=== PATIENT | female | born 1975 ===

== ENCOUNTER 2020-08-12 09:04 | Inpatient (IN) | payer OTHER ==
[2020-08-12 12:06] LABS: Bacteria,Urine 2+ /HPF (Negative); Bilirubin,Urine NEG (Negative); Blood,Urine LG (Negative); Color,Urine Yellow (Yellow); Mucus,Urine 3+ /HPF; Urobilinogen,Urine < 2.0 mg/dL (<2.0)
--- NOTE | 2020-08-12 13:37 | Ultrasound Report ---
LIMITED OBSTETRIC ULTRASOUND WITH BIOPHYSICAL PROFILE HISTORY: well-being, Assess biophysical profile and amniotic fluid index. Estimated gestational age 36 weeks 1 day COMPARISON: None. TECHNIQUE: Obstetric sonogram performed for biophysical profile assessment. FINDINGS: Gestation: Single intrauterine Presentation: Currentlycephalic Amniotic Fluid Index: 18.0 cm ANATOMY: Detailed anatomic survey was not requested. heart rate is 131 beats per minute. BIOPHYSICAL PROFILE: Movement: 2 Tone: 2 Breathin Amniotic Fluid: 2 Total: 6 out of 8 Other findings: There is what appears to be prominent fluid-filled loops of bowel in the abdome n. This is incompletely assessed on this examination. IMPRESSION 1. Biophysical Profile 03/12, therefore close interval follow-up is recommended. 2. Amniotic fluid index 18.0 cm. 3. There is what appears to be prominent fluid-filled loops of bowel in the abdomen. This is in completely assessed on this examination, and could be further evaluated with targeted obstetric ultra sound as clinically warranted. Signer Name: Madyson Luciano MD Signed: 08/12/2020 1:32 PM Workstation Name: [id number]
[2020-08-12] MEDS ORDERED: LACTATED RINGERS 1,000 ML ONE (14:24)
[2020-08-12] MEDS ORDERED: LACTATED RINGERS 1,000 ML IV ONE (15:00)
[2020-08-12] MEDS ORDERED: TERBUTALINE 1 MG/1 ML INJ SUB-Q SCH (15:00)
[2020-08-12] MEDS ORDERED: AMPICILLIN/NS 2 GM/100 ML 2 GM/100 ML BAG IV ONE ×2 (16:23→20:30)
[2020-08-12] MEDS ORDERED: LIDOCAINE (2%) 20 MG/1 ML VIAL 20 ML MDV INFILTRATI ONE (16:23)
[2020-08-12] MEDS ORDERED: ePHEDrine SULFATE 50 MG/1 ML INJ IV PRN (16:23)
[2020-08-12] MEDS ORDERED: fentaNYL 100 MCG/2 ML INJ IV PRN (16:23)
[2020-08-12] MEDS ORDERED: TERBUTALINE 1 MG/1 ML INJ SUB-Q PRN (16:23)
[2020-08-12] MEDS ORDERED: MINERAL OIL 30 ML ORAL LIQD PO PRN (16:23)
--- NOTE | 2020-08-12 16:30 | History and Physical Report ---
History of Present Illness Date of examination: 08/12/20 Date of admission: Leaking of water from vagina. Chief complaint: Contractions and leaking of fluid. History of present illness: 44 year old presents with complaint of several gushes of fluid from vagina today. Also complains of contractions. Patient denies vaginal bleeding. Patient reports active movement. Patient states she received care at [facility]. records are not available. Patient reports her EDC is 09/08/2020. No labs are available. labs and US have been ordered upon admission. 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 Also complicated by MO and AMA. States she was seeing [facility]. Current medications: Folic acid, vitamins, and iron. NKDA. 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 denies: smoking, alcohol abuse, prescription drug abuse, IV drug use - Obstetrical History Expected Date of Delivery: 09/08/20 Actual Gestation: 36 Week(s) 1 Day(s) : 3 Para: 2 Hx # Term Pregnancies: 2 Number of Pregnancies: 0 Spontaneous Abortions: 0 Induced : 0 Number of Living Children: 2 Medications and Allergies Allergies Allergy/AdvReac Type Severity Reaction Status Date / Time No Known Allergies Allergy Verified 08/12/20 16:37 Active Meds: Active Medications Betamethasone Acet/Betameth SodPhos (Celestone Soluspan) 12 mg IM Q24HR DEVAUGHN Ephedrine Sulfate (Ephedrine Sulfate) 10 mg IV Q2M PRN PRN Reason: Hypotension Fentanyl (Sublimaze) 100 mcg IV Q2H PRN PRN Reason: Pain,Severe (7-10) LABOR PAIN Lactated Ringer's (Lactated Ringers) 1,000 mls @ 125 mls/hr IV DIRECT DEVAUGHN Ampicillin Sodium (Ampicillin/Ns 2 Gm/100 Ml) 2 gm in 100 mls @ 100 mls/hr IV ONCE ONE; Protocol Stop: 08/12/20 17:22 Ampicillin Sodium (Ampicillin/Ns 1 Gm/50 Ml) 1 gm in 50 mls @ 100 mls/hr IV Q4HR DEVAUGHN; Protocol Lidocaine (Xylocaine 2%) 20 ml INFILTRATI ONCE ONE Stop: 08/12/20 16:24 Mineral Oil (Mineral Oil) 30 ml PO QHS PRN PRN Reason: Constipation Terbutaline Sulfate (Brethine) 0.25 mg SUB-Q Q20MIN DEVAUGHN Stop: 08/14/20 15:01 Last Admin: 08/12/20 15:08 Dose: 0.25 mg Documented by: Terbutaline Sulfate (Brethine) 0.25 mg SUB-Q ONCE PRN PRN Reason: Hyperstimulation/Hypertonicity Review of Systems All systems: negative (leaking of fluid and contractions) - Vital Signs Vital signs: Vital Signs Pulse Pulse Ox 101 H 97 08/12/20 09:34 08/12/20 09:34 Temp Pulse Resp BP Pulse Ox 97.7 F 120 H 16 134/75 96 08/12/20 14:00 08/12/20 16:26 08/12/20 14:00 08/12/20 15:47 08/12/20 16:26 EFW 8 lb. 4 oz. EGA 40 weeks by US today. BPP 6/8. - Physical Exam Abdomen: Positive: normal appearance, soft. Negative: distention, tenderness, guarding, rigidity Genitourinary (Female): Positive: normal external genitalia, normal perenium. Negative: perineal/vulvar lesions (no lesions seen on careful exam upon admission) Vagina: Positive: other (+ pooling, + fern test) Uterus: Positive: enlarged. Negative: tender Anus/Rectum: Positive: normal perianal skin Extremities: Positive: normal, edema (mild bilateral pedal edema). Negative: tenderness - Obstetrical FHR: category 1 Cervical Dilatation: 2 Cervical Effacement Percentage: 30 station: -3 Uterine Contraction Pattern: Irregular Uterine Contraction Intensity: Mild Results Result Diagrams: 08/12/20 17:08 Abnormal lab results 08/12/20 Range/Units Unknown Urine WBC (Auto) 31.0 H (0.0-6.0) /HPF U Epithel Cells (Auto) 92.0 H (0-13.0) /HPF All other labs normal. Assessment and Plan A: at 36 1/7 weeks gestation. SROM. Early labor. GBS unknown. No records available. Dilated bowel, microcolon, and jejunal atresia; dilated lateral ventricles. P: Request records. Admit. Continuous EFM. NICU notified of dilated bowel, microcolon, and jejunal atresia and dilated lateral ventricles. Celestone. Draw labs. Will augment labor with Pitocin if no or slow cervical change. GBS prophylaxis. Discussed POC with pt. and S.O. who state they are in agreement with POC.
[2020-08-12] MEDS ORDERED: BETAMET ACET/BETAMET NA PH 6 MG/ML INJ 5 ML MDV IM SCH (17:00)
[2020-08-12] MEDS ORDERED: ONDANSETRON 4 MG/2 ML INJ IV PRN (18:01)
[2020-08-12 18:07] LABS: Hemoglobin 12.1 gm/dl (10.1-14.3); Mean Corpuscular HGB Conc 34 % (30-34); Mean Corpuscular Volume 90 fl (79-97); Platelet Count 175 K/mm3 (140-440); Red Blood Count 4.02 M/mm3 (3.65-5.03); Red Cell Distribution Width 14.1 % (13.2-15.2)
--- NOTE | 2020-08-12 19:02 | Ultrasound Report ---
ULTRASOUND OBSTETRIC INDICATION / CLINICAL INFORMATION: EGA, EDC, location of placenta. Clinical Gestational Age (GA): 36.1 weeks.days TECHNIQUE: Transabdominal. COMPARISON: Limited ultrasound performed earlier today FINDINGS: There is a single intrauterine . Biparietal Diameter = 9.8 cm = 40.0 weeks.days Head Circumference = 34.9 cm = 40.4 weeks.days Abdominal Circumference = 36.6 cm = 40.4 weeks.days Femur Length = 7.6 cm = 39.0 weeks.days Average Ultrasound Age (AUA) = 40.0 weeks.days Heart Rate: 140 beats per minute. Estimated Weight in grams (if calculated): 4011 bowel loops appear dilated as was noted on limited SOUND performed earlier today. Position: cephalic. Placenta: anterior and free of the os. Amniotic Fluid Volume: normal Amniotic Fluid Index (ZENIA) in cm (if calculated): 18.8. Maternal Adnexa: No significant abnormality. IMPRESSION: 1. Single, living intrauterine with estimated sonographic age of 40.0 weeks.days 2. bowel loops appear dilated. Signer Name: Lee Vargas MD Signed: 08/12/2020 6:58 PM Workstation Name: [id number]
[2020-08-12] MEDS ORDERED: OXYTOCIN DRIP 30 UNITS/500 ML BAG IV SCH (20:00)
[2020-08-12] MEDS ORDERED: AMPICILLIN/NS 1 GM/50 ML 1 GM/50 ML BAG IV SCH (20:26)
[2020-08-12] MEDS: LACTATED RINGERS 1,000 ML IV SCH (20:51)
[2020-08-12 21:15] LABS: Hepatitis C Virus Antibody Non-Reactive (NonReactive)
[2020-08-13] MEDS: LACTATED RINGERS 1,000 ML IV SCH (04:32)
[2020-08-13] MEDS: AMPICILLIN/NS 1 GM/50 ML 1 GM/50 ML BAG IV SCH ×5 (04:32→23:30)
--- NOTE | 2020-08-13 05:02 | Event Note ---
Date: 08/13/20 SVE .
--- NOTE | 2020-08-13 10:10 | Progress Note ---
Assessment and Plan A: IUP@ 36 wks with SROM cl fluid AMA, bowel dilation, dilated lateral ventricles GBS unknown P: Continue monitoring with Pitocin Pain med/Epidural prn GBS prophylaxis obtain MR Alert NICU Anticipate Subjective - Subjective Date of service: 08/13/20 Principal diagnosis: iup@ 36 wks Patient reports: movement normal Objective - Vital Signs Vital Signs: Vital Signs - 12hr 08/12/20 08/12/20 08/12/20 22:01 22:06 22:11 Temperature Pulse Rate 92 H 90 96 H Respiratory Rate Blood Pressure O2 Sat by Pulse 96 97 97 Oximetry 08/12/20 08/12/20 08/12/20 22:16 22:21 22:26 Temperature Pulse Rate 90 93 H 102 H Respiratory Rate Blood Pressure O2 Sat by Pulse 97 97 97 Oximetry 08/12/20 08/12/20 08/12/20 22:31 22:36 22:41 Temperature Pulse Rate 99 H 94 H 93 H Respiratory Rate Blood Pressure O2 Sat by Pulse 95 95 96 Oximetry 08/12/20 08/12/20 08/12/20 22:45 22:46 22:51 Temperature 98.2 F Pulse Rate 96 H 96 H Respiratory Rate Blood Pressure O2 Sat by Pulse 97 96 Oximetry 08/12/20 08/12/20 08/12/20 22:56 23:01 23:06 Temperature Pulse Rate 100 H 88 92 H Respiratory Rate Blood Pressure O2 Sat by Pulse 95 96 97 Oximetry 08/12/20 08/12/20 08/12/20 23:11 23:16 23:21 Temperature Pulse Rate 91 H 81 88 Respiratory Rate Blood Pressure O2 Sat by Pulse 96 95 97 Oximetry 08/12/20 08/12/20 08/12/20 23:26 23:31 23:36 Temperature Pulse Rate 98 H 85 84 Respiratory Rate Blood Pressure O2 Sat by Pulse 97 96 94 Oximetry 08/12/20 08/12/20 08/12/20 23:37 23:41 23:44 Temperature Pulse Rate 85 82 97 H Respiratory Rate Blood Pressure O2 Sat by Pulse 94 95 94 Oximetry 08/12/20 08/12/20 08/12/20 23:46 23:51 23:52 Temperature Pulse Rate 82 84 87 Respiratory Rate Blood Pressure O2 Sat by Pulse 95 96 94 Oximetry 08/12/20 08/12/20 08/13/20 23:56 23:59 00:01 Temperature Pulse Rate 82 89 95 H Respiratory Rate Blood Pressure O2 Sat by Pulse 95 94 96 Oximetry 08/13/20 08/13/20 08/13/20 00:06 00:15 00:17 Temperature 98.5 F Pulse Rate 93 H 80 Respiratory Rate Blood Pressure 136/84 O2 Sat by Pulse 97 98 Oximetry 08/13/20 08/13/20 08/13/20 00:22 00:27 00:32 Temperature Pulse Rate 85 83 87 Respiratory Rate Blood Pressure O2 Sat by Pulse 95 95 96 Oximetry 08/13/20 08/13/20 08/13/20 00:37 00:42 00:47 Temperature Pulse Rate 84 95 H 94 H Respiratory Rate Blood Pressure O2 Sat by Pulse 95 96 97 Oximetry 08/13/20 08/13/20 08/13/20 00:52 00:57 01:02 Temperature Pulse Rate 84 93 H 96 H Respiratory Rate Blood Pressure O2 Sat by Pulse 96 97 95 Oximetry 08/13/20 08/13/20 08/13/20 01:07 01:12 01:18 Temperature Pulse Rate 97 H 94 H 94 H Respiratory Rate Blood Pressure O2 Sat by Pulse 95 96 96 Oximetry 08/13/20 08/13/20 08/13/20 01:22 01:27 01:32 Temperature Pulse Rate 89 94 H 96 H Respiratory Rate Blood Pressure O2 Sat by Pulse 97 96 96 Oximetry 08/13/20 08/13/20 08/13/20 01:35 01:38 01:42 Temperature Pulse Rate 90 104 H 87 Respiratory Rate Blood Pressure O2 Sat by Pulse 94 96 95 Oximetry 08/13/20 08/13/20 08/13/20 01:47 01:52 01:57 Temperature Pulse Rate 90 94 H 83 Respiratory Rate Blood Pressure O2 Sat by Pulse 96 97 95 Oximetry 08/13/20 08/13/20 08/13/20 02:00 02:02 02:07 Temperature Pulse Rate 80 90 89 Respiratory Rate Blood Pressure O2 Sat by Pulse 94 95 96 Oximetry 08/13/20 08/13/20 08/13/20 02:13 02:17 02:18 Temperature Pulse Rate 92 H 78 94 H Respiratory Rate Blood Pressure O2 Sat by Pulse 94 95 94 Oximetry 08/13/20 08/13/20 08/13/20 02:22 02:27 02:28 Temperature Pulse Rate 76 87 88 Respiratory Rate Blood Pressure O2 Sat by Pulse 96 93 96 Oximetry 08/13/20 08/13/20 08/13/20 02:32 02:33 02:38 Temperature Pulse Rate 96 H 101 H 99 H Respiratory Rate Blood Pressure O2 Sat by Pulse 92 93 96 Oximetry 08/13/20 08/13/20 08/13/20 02:43 02:45 02:55 Temperature 97.8 F Pulse Rate 92 H 90 Respiratory Rate Blood Pressure O2 Sat by Pulse 96 96 Oximetry 08/13/20 08/13/20 08/13/20 03:00 03:04 03:10 Temperature Pulse Rate 88 93 H 85 Respiratory Rate Blood Pressure O2 Sat by Pulse 96 96 96 Oximetry 08/13/20 08/13/20 08/13/20 03:14 03:19 03:25 Temperature Pulse Rate 90 94 H 87 Respiratory Rate Blood Pressure O2 Sat by Pulse 96 95 96 Oximetry 08/13/20 08/13/20 08/13/20 03:29 03:34 03:40 Temperature Pulse Rate 89 90 85 Respiratory Rate Blood Pressure O2 Sat by Pulse 96 96 96 Oximetry 08/13/20 08/13/20 08/13/20 03:45 03:49 03:55 Temperature Pulse Rate 88 115 H 94 H Respiratory Rate Blood Pressure O2 Sat by Pulse 96 98 96 Oximetry 08/13/20 08/13/20 08/13/20 03:59 04:03 04:05 Temperature Pulse Rate 103 H 93 H 96 H Respiratory Rate Blood Pressure O2 Sat by Pulse 96 94 96 Oximetry 08/13/20 08/13/20 08/13/20 04:09 04:10 04:15 Temperature Pulse Rate 92 H 87 87 Respiratory Rate Blood Pressure O2 Sat by Pulse 94 96 95 Oximetry 08/13/20 08/13/20 08/13/20 04:20 04:25 04:26 Temperature Pulse Rate 86 86 86 Respiratory Rate Blood Pressure O2 Sat by Pulse 94 94 93 Oximetry 08/13/20 08/13/20 08/13/20 04:30 04:35 04:40 Temperature Pulse Rate 91 H 101 H 91 H Respiratory Rate Blood Pressure O2 Sat by Pulse 96 96 96 Oximetry 08/13/20 08/13/20 08/13/20 04:44 04:45 04:50 Temperature 98.0 F Pulse Rate 88 90 Respiratory Rate Blood Pressure O2 Sat by Pulse 96 96 Oximetry 08/13/20 08/13/20 08/13/20 04:54 05:00 05:05 Temperature Pulse Rate 87 86 90 Respiratory Rate Blood Pressure O2 Sat by Pulse 96 97 96 Oximetry 08/13/20 08/13/20 08/13/20 05:09 05:14 05:20 Temperature Pulse Rate 102 H 100 H 88 Respiratory Rate Blood Pressure O2 Sat by Pulse 96 95 96 Oximetry 08/13/20 08/13/20 08/13/20 05:25 05:30 05:35 Temperature Pulse Rate 87 95 H 89 Respiratory Rate Blood Pressure O2 Sat by Pulse 97 95 97 Oximetry 08/13/20 08/13/20 08/13/20 05:40 05:45 05:50 Temperature Pulse Rate 82 94 H 94 H Respiratory Rate Blood Pressure O2 Sat by Pulse 97 96 97 Oximetry 08/13/20 08/13/20 08/13/20 05:55 06:07 06:12 Temperature Pulse Rate 94 H 97 H 86 Respiratory Rate Blood Pressure O2 Sat by Pulse 97 98 96 Oximetry 08/13/20 08/13/20 08/13/20 06:17 06:22 06:27 Temperature Pulse Rate 95 H 86 96 H Respiratory Rate Blood Pressure O2 Sat by Pulse 97 96 97 Oximetry 08/13/20 08/13/20 08/13/20 06:32 06:37 06:42 Temperature Pulse Rate 89 88 90 Respiratory Rate Blood Pressure O2 Sat by Pulse 97 97 96 Oximetry 08/13/20 08/13/20 08/13/20 06:47 06:52 06:57 Temperature Pulse Rate 103 H 91 H 100 H Respiratory Rate Blood Pressure O2 Sat by Pulse 96 96 98 Oximetry 08/13/20 08/13/20 08/13/20 07:02 07:07 07:12 Temperature Pulse Rate 95 H 99 H 97 H Respiratory Rate Blood Pressure O2 Sat by Pulse 96 96 97 Oximetry 08/13/20 08/13/20 08/13/20 07:17 07:22 07:27 Temperature 98.1 F Pulse Rate 99 H 88 94 H Respiratory 18 Rate Blood Pressure 126/72 O2 Sat by Pulse 96 97 98 Oximetry 08/13/20 08/13/20 08/13/20 07:32 07:40 07:45 Temperature Pulse Rate 85 94 H 85 Respiratory Rate Blood Pressure O2 Sat by Pulse 97 97 97 Oximetry 08/13/20 08/13/20 08/13/20 07:50 07:55 08:00 Temperature Pulse Rate 91 H 88 88 Respiratory Rate Blood Pressure 125/66 O2 Sat by Pulse 96 96 97 Oximetry 08/13/20 08/13/20 08/13/20 08:05 08:10 08:15 Temperature Pulse Rate 92 H 92 H 90 Respiratory Rate Blood Pressure O2 Sat by Pulse 97 97 97 Oximetry 08/13/20 08/13/20 08/13/20 08:20 08:24 08:25 Temperature Pulse Rate 90 92 H 90 Respiratory Rate Blood Pressure 126/64 O2 Sat by Pulse 97 99 Oximetry 08/13/20 08/13/20 08/13/20 08:30 08:43 08:48 Temperature Pulse Rate 87 93 H 89 Respiratory Rate Blood Pressure O2 Sat by Pulse 97 94 98 Oximetry 08/13/20 08/13/20 08/13/20 08:53 08:55 08:58 Temperature Pulse Rate 86 85 84 Respiratory Rate Blood Pressure 116/55 O2 Sat by Pulse 97 97 Oximetry 08/13/20 08/13/20 08/13/20 09:03 09:08 09:13 Temperature Pulse Rate 93 H 93 H 96 H Respiratory Rate Blood Pressure O2 Sat by Pulse 98 99 98 Oximetry 08/13/20 08/13/20 08/13/20 09:18 09:23 09:25 Temperature Pulse Rate 109 H 92 H 96 H Respiratory Rate Blood Pressure 111/56 O2 Sat by Pulse 98 97 Oximetry 08/13/20 08/13/20 08/13/20 09:28 09:33 09:38 Temperature Pulse Rate 92 H 97 H 87 Respiratory Rate Blood Pressure O2 Sat by Pulse 98 98 97 Oximetry 08/13/20 08/13/20 08/13/20 09:43 09:48 09:53 Temperature Pulse Rate 89 89 94 H Respiratory Rate Blood Pressure O2 Sat by Pulse 98 99 99 Oximetry 08/13/20 08/13/20 09:54 09:58 Temperature Pulse Rate 90 97 H Respiratory Rate Blood Pressure 118/59 O2 Sat by Pulse 99 Oximetry - Exam Breasts: normal Abdomen: Present: normal appearance, soft, other (gravid) Vulva: both: normal Uterus: Present: normal, other (gravid) FHR: auscultation normal, category 1 Uterine Contraction Monitor Mode: External Uterine Contraction Pattern: Irregular Uterine Tone Measurement Phase: Resting Uterine Contraction Intensity: Mild Extremities: normal - Labs Labs: Abnormal Labs 08/12/20 Unknown Urine WBC (Auto) 31.0 H U Epithel Cells (Auto) 92.0 H Laboratory Results - last 24 hr 08/12/20 08/12/20 08/12/20 17:08 17:08 20:10 WBC 9.3 RBC 4.02 Hgb 12.1 Hct 36.0 MCV 90 MCH 30 MCHC 34 RDW 14.1 Plt Count 175 Hemoglobin A1c Urine Color Urine Turbidity Urine pH Ur Specific [place] Urine Protein Urine Glucose (UA) Urine Ketones Urine Blood Urine Nitrite Urine Bilirubin Urine Urobilinogen Ur Leukocyte Esterase Urine WBC (Auto) Urine RBC (Auto) U Epithel Cells (Auto) Urine Bacteria (Auto) Urine Mucus Syphilis IgG Antibody Nonreactive Hep Bs Antigen Hepatitis C Antibody Non-reactive HIV 1&2 Antibody Rapid HIV P24 Antigen Rubella IgG Antibody Immune Blood Type B POSITIVE Antibody Screen Negative 08/12/20 08/12/20 08/12/20 20:10 20:10 Unknown WBC RBC Hgb Hct MCV MCH MCHC RDW Plt Count Hemoglobin A1c Urine Color Yellow Urine Turbidity Cloudy Urine pH 5.0 Ur Specific [place] 1.023 Urine Protein 100 mg/dl Urine Glucose (UA) Neg Urine Ketones Neg Urine Blood Lg Urine Nitrite Neg Urine Bilirubin Neg Urine Urobilinogen < 2.0 Ur Leukocyte Esterase Mod Urine WBC (Auto) 31.0 H Urine RBC (Auto) 170.0 U Epithel Cells (Auto) 92.0 H Urine Bacteria (Auto) 2+ Urine Mucus 3+ Syphilis IgG Antibody Hep Bs Antigen Non-reactive Hepatitis C Antibody HIV 1&2 Antibody Rapid Non react HIV P24 Antigen Non react Rubella IgG Antibody Blood Type Antibody Screen 08/12/20 Unknown WBC RBC Hgb Hct MCV MCH MCHC RDW Plt Count Hemoglobin A1c 5.8 Urine Color Urine Turbidity Urine pH Ur Specific [place] Urine Protein Urine Glucose (UA) Urine Ketones Urine Blood Urine Nitrite Urine Bilirubin Urine Urobilinogen Ur Leukocyte Esterase Urine WBC (Auto) Urine RBC (Auto) U Epithel Cells (Auto) Urine Bacteria (Auto) Urine Mucus Syphilis IgG Antibody Hep Bs Antigen Hepatitis C Antibody HIV 1&2 Antibody Rapid HIV P24 Antigen Rubella IgG Antibody Blood Type Antibody Screen
--- NOTE | 2020-08-13 15:28 | Progress Note ---
Assessment and Plan A: IUP@ 36.2 wks p: AROM light mec Continue monitoring Pain med/Epidural prn Anticipate Subjective - Subjective Date of service: 08/13/20 Principal diagnosis: iup@ 36 wks Patient reports: movement normal Objective - Vital Signs Vital Signs: Vital Signs - 12hr 08/13/20 08/13/20 08/13/20 03:25 03:29 03:34 Temperature Pulse Rate 87 89 90 Respiratory Rate Blood Pressure O2 Sat by Pulse 96 96 96 Oximetry 08/13/20 08/13/20 08/13/20 03:40 03:45 03:49 Temperature Pulse Rate 85 88 115 H Respiratory Rate Blood Pressure O2 Sat by Pulse 96 96 98 Oximetry 08/13/20 08/13/20 08/13/20 03:55 03:59 04:03 Temperature Pulse Rate 94 H 103 H 93 H Respiratory Rate Blood Pressure O2 Sat by Pulse 96 96 94 Oximetry 08/13/20 08/13/20 08/13/20 04:05 04:09 04:10 Temperature Pulse Rate 96 H 92 H 87 Respiratory Rate Blood Pressure O2 Sat by Pulse 96 94 96 Oximetry 08/13/20 08/13/20 08/13/20 04:15 04:20 04:25 Temperature Pulse Rate 87 86 86 Respiratory Rate Blood Pressure O2 Sat by Pulse 95 94 94 Oximetry 08/13/20 08/13/20 08/13/20 04:26 04:30 04:35 Temperature Pulse Rate 86 91 H 101 H Respiratory Rate Blood Pressure O2 Sat by Pulse 93 96 96 Oximetry 08/13/20 08/13/20 08/13/20 04:40 04:44 04:45 Temperature 98.0 F Pulse Rate 91 H 88 Respiratory Rate Blood Pressure O2 Sat by Pulse 96 96 Oximetry 08/13/20 08/13/20 08/13/20 04:50 04:54 05:00 Temperature Pulse Rate 90 87 86 Respiratory Rate Blood Pressure O2 Sat by Pulse 96 96 97 Oximetry 08/13/20 08/13/20 08/13/20 05:05 05:09 05:14 Temperature Pulse Rate 90 102 H 100 H Respiratory Rate Blood Pressure O2 Sat by Pulse 96 96 95 Oximetry 08/13/20 08/13/20 08/13/20 05:20 05:25 05:30 Temperature Pulse Rate 88 87 95 H Respiratory Rate Blood Pressure O2 Sat by Pulse 96 97 95 Oximetry 08/13/20 08/13/20 08/13/20 05:35 05:40 05:45 Temperature Pulse Rate 89 82 94 H Respiratory Rate Blood Pressure O2 Sat by Pulse 97 97 96 Oximetry 08/13/20 08/13/20 08/13/20 05:50 05:55 06:07 Temperature Pulse Rate 94 H 94 H 97 H Respiratory Rate Blood Pressure O2 Sat by Pulse 97 97 98 Oximetry 08/13/20 08/13/20 08/13/20 06:12 06:17 06:22 Temperature Pulse Rate 86 95 H 86 Respiratory Rate Blood Pressure O2 Sat by Pulse 96 97 96 Oximetry 08/13/20 08/13/20 08/13/20 06:27 06:32 06:37 Temperature Pulse Rate 96 H 89 88 Respiratory Rate Blood Pressure O2 Sat by Pulse 97 97 97 Oximetry 08/13/20 08/13/20 08/13/20 06:42 06:47 06:52 Temperature Pulse Rate 90 103 H 91 H Respiratory Rate Blood Pressure O2 Sat by Pulse 96 96 96 Oximetry 08/13/20 08/13/20 08/13/20 06:57 07:02 07:07 Temperature Pulse Rate 100 H 95 H 99 H Respiratory Rate Blood Pressure O2 Sat by Pulse 98 96 96 Oximetry 08/13/20 08/13/20 08/13/20 07:12 07:17 07:22 Temperature 98.1 F Pulse Rate 97 H 99 H 88 Respiratory 18 Rate Blood Pressure O2 Sat by Pulse 97 96 97 Oximetry 08/13/20 08/13/20 08/13/20 07:27 07:32 07:40 Temperature Pulse Rate 94 H 85 94 H Respiratory Rate Blood Pressure 126/72 O2 Sat by Pulse 98 97 97 Oximetry 08/13/20 08/13/20 08/13/20 07:45 07:50 07:55 Temperature Pulse Rate 85 91 H 88 Respiratory Rate Blood Pressure 125/66 O2 Sat by Pulse 97 96 96 Oximetry 08/13/20 08/13/20 08/13/20 08:00 08:05 08:10 Temperature Pulse Rate 88 92 H 92 H Respiratory Rate Blood Pressure O2 Sat by Pulse 97 97 97 Oximetry 08/13/20 08/13/20 08/13/20 08:15 08:20 08:24 Temperature Pulse Rate 90 90 92 H Respiratory Rate Blood Pressure 126/64 O2 Sat by Pulse 97 97 Oximetry 08/13/20 08/13/20 08/13/20 08:25 08:30 08:43 Temperature Pulse Rate 90 87 93 H Respiratory Rate Blood Pressure O2 Sat by Pulse 99 97 94 Oximetry 08/13/20 08/13/20 08/13/20 08:48 08:53 08:55 Temperature Pulse Rate 89 86 85 Respiratory Rate Blood Pressure 116/55 O2 Sat by Pulse 98 97 Oximetry 08/13/20 08/13/20 08/13/20 08:58 09:03 09:08 Temperature Pulse Rate 84 93 H 93 H Respiratory Rate Blood Pressure O2 Sat by Pulse 97 98 99 Oximetry 08/13/20 08/13/20 08/13/20 09:13 09:18 09:23 Temperature Pulse Rate 96 H 109 H 92 H Respiratory Rate Blood Pressure O2 Sat by Pulse 98 98 97 Oximetry 08/13/20 08/13/20 08/13/20 09:25 09:28 09:33 Temperature Pulse Rate 96 H 92 H 97 H Respiratory Rate Blood Pressure 111/56 O2 Sat by Pulse 98 98 Oximetry 08/13/20 08/13/20 08/13/20 09:38 09:43 09:48 Temperature Pulse Rate 87 89 89 Respiratory Rate Blood Pressure O2 Sat by Pulse 97 98 99 Oximetry 08/13/20 08/13/20 08/13/20 09:53 09:54 09:58 Temperature Pulse Rate 94 H 90 97 H Respiratory Rate Blood Pressure 118/59 O2 Sat by Pulse 99 99 Oximetry 08/13/20 08/13/20 08/13/20 10:03 10:08 10:13 Temperature Pulse Rate 92 H 101 H 96 H Respiratory Rate Blood Pressure O2 Sat by Pulse 98 98 97 Oximetry 08/13/20 08/13/20 08/13/20 10:18 10:23 10:25 Temperature Pulse Rate 97 H 90 96 H Respiratory Rate Blood Pressure 121/58 O2 Sat by Pulse 98 98 Oximetry 08/13/20 08/13/20 08/13/20 10:28 10:33 10:38 Temperature Pulse Rate 94 H 88 90 Respiratory Rate Blood Pressure O2 Sat by Pulse 97 98 97 Oximetry 08/13/20 08/13/20 08/13/20 10:41 10:43 10:48 Temperature 97.9 F Pulse Rate 89 99 H Respiratory Rate Blood Pressure O2 Sat by Pulse 97 98 Oximetry 08/13/20 08/13/20 08/13/20 10:53 10:54 10:58 Temperature Pulse Rate 88 89 89 Respiratory Rate Blood Pressure 118/59 O2 Sat by Pulse 98 98 Oximetry 08/13/20 08/13/20 08/13/20 11:03 11:08 11:13 Temperature Pulse Rate 89 94 H 96 H Respiratory Rate Blood Pressure O2 Sat by Pulse 97 97 97 Oximetry 08/13/20 08/13/20 08/13/20 11:18 11:23 11:24 Temperature Pulse Rate 91 H 93 H 108 H Respiratory Rate Blood Pressure 110/59 O2 Sat by Pulse 97 96 Oximetry 08/13/20 08/13/20 08/13/20 11:28 11:33 11:38 Temperature Pulse Rate 101 H 92 H 94 H Respiratory Rate Blood Pressure O2 Sat by Pulse 98 97 99 Oximetry 08/13/20 08/13/20 08/13/20 11:43 11:48 11:50 Temperature Pulse Rate 100 H 100 H 98 H Respiratory Rate Blood Pressure O2 Sat by Pulse 97 98 99 Oximetry 08/13/20 08/13/20 08/13/20 11:55 11:59 12:00 Temperature Pulse Rate 99 H 96 H 100 H Respiratory Rate Blood Pressure 109/57 O2 Sat by Pulse 99 99 Oximetry 08/13/20 08/13/20 08/13/20 12:05 12:07 12:10 Temperature 98.4 F Pulse Rate 94 H 97 H Respiratory 20 Rate Blood Pressure O2 Sat by Pulse 98 97 Oximetry 08/13/20 08/13/20 08/13/20 12:15 12:20 12:25 Temperature Pulse Rate 94 H 107 H 103 H Respiratory Rate Blood Pressure O2 Sat by Pulse 96 97 97 Oximetry 08/13/20 08/13/20 08/13/20 12:30 12:31 12:35 Temperature Pulse Rate 104 H 103 H 106 H Respiratory Rate Blood Pressure 110/55 O2 Sat by Pulse 97 98 Oximetry 08/13/20 08/13/20 08/13/20 12:40 12:45 12:50 Temperature Pulse Rate 100 H 100 H 105 H Respiratory Rate Blood Pressure O2 Sat by Pulse 98 97 97 Oximetry 08/13/20 08/13/20 08/13/20 12:55 12:59 13:00 Temperature Pulse Rate 103 H 98 H 103 H Respiratory Rate Blood Pressure 106/55 O2 Sat by Pulse 98 98 Oximetry 08/13/20 08/13/20 08/13/20 13:05 13:10 13:15 Temperature Pulse Rate 102 H 104 H 105 H Respiratory Rate Blood Pressure O2 Sat by Pulse 98 97 97 Oximetry 08/13/20 08/13/20 08/13/20 13:20 13:25 13:30 Temperature Pulse Rate 102 H 103 H 102 H Respiratory Rate Blood Pressure 102/50 O2 Sat by Pulse 97 96 98 Oximetry 08/13/20 08/13/20 08/13/20 13:35 13:40 13:45 Temperature Pulse Rate 114 H 112 H 127 H Respiratory Rate Blood Pressure O2 Sat by Pulse 97 96 96 Oximetry 08/13/20 08/13/20 08/13/20 13:49 13:50 13:55 Temperature Pulse Rate 115 H 111 H 105 H Respiratory Rate Blood Pressure O2 Sat by Pulse 94 95 96 Oximetry 08/13/20 08/13/20 08/13/20 14:00 14:05 14:10 Temperature Pulse Rate 104 H 105 H 111 H Respiratory Rate Blood Pressure 106/54 O2 Sat by Pulse 98 98 96 Oximetry 08/13/20 08/13/20 08/13/20 14:15 14:20 14:25 Temperature Pulse Rate 101 H 105 H 102 H Respiratory Rate Blood Pressure O2 Sat by Pulse 96 98 97 Oximetry 08/13/20 08/13/20 08/13/20 14:28 14:29 14:30 Temperature 98.1 F Pulse Rate 103 H 106 H Respiratory 18 Rate Blood Pressure 111/55 O2 Sat by Pulse 98 Oximetry 08/13/20 08/13/20 08/13/20 14:35 14:40 14:45 Temperature Pulse Rate 103 H 101 H 102 H Respiratory Rate Blood Pressure O2 Sat by Pulse 98 98 98 Oximetry 08/13/20 08/13/20 08/13/20 14:50 14:55 15:00 Temperature Pulse Rate 103 H 93 H 99 H Respiratory Rate Blood Pressure O2 Sat by Pulse 97 99 100 Oximetry 08/13/20 08/13/20 08/13/20 15:01 15:05 15:10 Temperature Pulse Rate 100 H 98 H 105 H Respiratory Rate Blood Pressure 109/57 O2 Sat by Pulse 99 98 Oximetry 08/13/20 08/13/20 08/13/20 15:15 15:17 15:20 Temperature Pulse Rate 103 H 50 L 75 Respiratory Rate Blood Pressure O2 Sat by Pulse 99 0 L 94 Oximetry - Exam Breasts: deferred Abdomen: Present: normal appearance, soft Vulva: both: normal Uterus: Present: normal FHR: category 1 Uterine Contraction Monitor Mode: External Cervical Dilatation: 4 Cervical Effacement Percentage: 70 station: -2 Uterine Contraction Frequency (min): q2-3 Uterine Contraction Pattern: Regular Uterine Tone Measurement Phase: Resting Uterine Contraction Intensity: Moderate Extremities: normal - Labs Labs: Abnormal Labs 08/12/20 Unknown Urine WBC (Auto) 31.0 H U Epithel Cells (Auto) 92.0 H Laboratory Results - last 24 hr 08/12/20 08/12/20 08/12/20 17:08 17:08 20:10 WBC 9.3 RBC 4.02 Hgb 12.1 Hct 36.0 MCV 90 MCH 30 MCHC 34 RDW 14.1 Plt Count 175 Hemoglobin A1c Syphilis IgG Antibody Nonreactive Hep Bs Antigen Hepatitis C Antibody Non-reactive HIV 1&2 Antibody Rapid HIV P24 Antigen Rubella IgG Antibody Immune Blood Type B POSITIVE Antibody Screen Negative 08/12/20 08/12/20 08/12/20 20:10 20:10 Unknown WBC RBC Hgb Hct MCV MCH MCHC RDW Plt Count Hemoglobin A1c 5.8 Syphilis IgG Antibody Hep Bs Antigen Non-reactive Hepatitis C Antibody HIV 1&2 Antibody Rapid Non react HIV P24 Antigen Non react Rubella IgG Antibody Blood Type Antibody Screen
--- NOTE | 2020-08-13 17:22 | Consultation ---
Consult Note - Parent Education Parent(s) demonstrated understanding of all the information:: Yes Additional Comment: I met with both parents and discussed the plan of care for baby following delivery using bottle filler line with Skid Wrapper ID# [id number]. Both parents are aware of suspected ventricular dilation and intestinal dilation concerning for bowel obstruction in-utero. 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 I discussed the need for NICU admission to confirm the diagnosis. I explained that baby will not be allowed to feed after delivery and will have a PIV and NG tube after which an abdominal XRay will be obtained. If concerns are noted on Xray/exam, baby will be transferred to a [facility] for further evaluation and management. The dilated ventricles appear to be mild per the MRI and will be investigated initially with cranial US followed by advanced imaging if indicated. Both parents verbalized understanding of the plan of care and asked appropriate questions. Assessment and Plan - Assessment Gestation:: 36 (weeks) Baby's gender: Female - Plan Plan: Will attend delivery Admit baby to NICU for investigation and management of suspected bowel atresia
[2020-08-13] MEDS ORDERED: NALOXONE 2 MG/2 ML INJ IV PRN (18:21)
[2020-08-13] MEDS ORDERED: ePHEDrine SULFATE 50 MG/1 ML INJ IV PRN (18:21)
--- NOTE | 2020-08-13 18:21 | Anesthesia Consultation ---
Anesthesia Consult and Med Hx Date of service: 08/13/20 - Airway Anesthetic Teeth Evaluation: Good ROM Head & Neck: Adequate Mental/Hyoid Distance: Adequate Mallampati Class: Class II Intubation Access Assessment: Probably Good - Pulmonary Exam CTA: Yes - Cardiac Exam Cardiac Exam: RRR - Pre-Operative Health Status ASA Pre-Surgery Classification: ASA3 Proposed Anesthetic Plan: Epidural - Pulmonary Hx Asthma: Yes (08/11/2020) - Cardiovascular System Hx Hypertension: No - Central Nervous System Hx Seizures: No Hx Psychiatric Problems: No - Endocrine Hx Renal Disease: No Hx Hypothyroidism: No Hx Hyperthyroidism: No - Hematic Hx Anemia: No Hx Sickle Cell Disease: No - Other Systems Hx Alcohol Use: No Hx Obesity: Yes
--- NOTE | 2020-08-13 18:53 | Progress Note ---
Labor Epidural - Labor Epidural Start Time: 18:33 Stop Time: 18:52 Performed by:: CLEMENTE RIZVI Procedure: Patient is requesting epidural for labor pain. H&P, and labs reviewed. Procedure explained, questions answered, consent obtained. Patient in sitting position with blood pressure cuff and pulse ox on and working. Timeout performed immediately before start of procedure. Sterile betadine prep/drape. 3 mL 1% lidocaine skin wheal at L[3]-L[4]. 18-gauge UnFlete.comtead epidural needle advanced to [id number] with saline at 9 cm. Epidural dexmedetomidine [30] mcg administered. Epidural catheter advanced to 14 cm, negative aspiration for blood and csf, negative test dose 3 ml 1.5% lidocaine with epinephrine. Sterile steri-strips and tegaderm applied, followed by tape reinforcement. Patient tolerated procedure well. By SRNA
[2020-08-13] MEDS: fentaNYL-BUPIV 2 MCG/ML-0.125% 200 MCG/100 ML BAG EPIDURAL SCH (19:44)
[2020-08-14] MEDS: AMPICILLIN/NS 1 GM/50 ML 1 GM/50 ML BAG IV SCH ×2 (03:31→07:55)
[2020-08-14] MEDS: fentaNYL-BUPIV 2 MCG/ML-0.125% 200 MCG/100 ML BAG EPIDURAL SCH (04:17)
[2020-08-14] MEDS ORDERED: BUPIVACAINE/PF (0.25%) 2.5 MG/ML 10 ML VIAL INFILTRATI ONE (07:15)
--- NOTE | 2020-08-14 09:00 | Progress Note ---
Assessment and Plan - Patient Problems (1) SROM (spontaneous rupture of membranes) Current Visit: Yes Status: Acute Plan to address problem: Continue Pitocin titration as tolerated Anticipate (2) GBS screening not performed Current Visit: Yes Status: Acute Plan to address problem: Continue GBS protocol (3) Duodenal atresia, , affecting care of mother, antepartum Current Visit: Yes Status: Acute Plan to address problem: NICU at bedside for delivery Subjective - Subjective Date of service: 08/14/20 Principal diagnosis: iup@ 36 wks Interval history: See admission H &P and OB progress notes Patient reports: loss of fluid (clear), movement normal, contractions ("can't feel them") Objective - Vital Signs Vital Signs: Vital Signs - 12hr 08/13/20 08/13/20 08/13/20 20:57 21:02 21:03 Temperature Pulse Rate 91 H 97 H 92 H Respiratory Rate Blood Pressure 105/57 O2 Sat by Pulse 96 96 Oximetry 08/13/20 08/13/20 08/13/20 21:07 21:12 21:17 Temperature Pulse Rate 95 H 94 H 95 H Respiratory Rate Blood Pressure O2 Sat by Pulse 96 96 96 Oximetry 08/13/20 08/13/20 08/13/20 21:22 21:27 21:32 Temperature Pulse Rate 95 H 92 H 92 H Respiratory Rate Blood Pressure 102/56 O2 Sat by Pulse 95 95 96 Oximetry 08/13/20 08/13/20 08/13/20 21:37 21:42 21:47 Temperature Pulse Rate 102 H 99 H 103 H Respiratory Rate Blood Pressure O2 Sat by Pulse 96 94 97 Oximetry 08/13/20 08/13/20 08/13/20 21:52 21:57 22:02 Temperature Pulse Rate 101 H 101 H 103 H Respiratory Rate Blood Pressure O2 Sat by Pulse 97 97 98 Oximetry 08/13/20 08/13/20 08/13/20 22:03 22:07 22:12 Temperature Pulse Rate 103 H 97 H 105 H Respiratory Rate Blood Pressure 119/67 O2 Sat by Pulse 99 99 Oximetry 08/13/20 08/13/20 08/13/20 22:17 22:22 22:27 Temperature Pulse Rate 100 H 94 H 101 H Respiratory Rate Blood Pressure O2 Sat by Pulse 100 99 100 Oximetry 08/13/20 08/13/20 08/13/20 22:32 22:37 22:42 Temperature Pulse Rate 95 H 106 H 95 H Respiratory Rate Blood Pressure 98/50 O2 Sat by Pulse 100 99 99 Oximetry 08/13/20 08/13/20 08/13/20 22:46 22:52 22:57 Temperature Pulse Rate 93 H 81 86 Respiratory Rate Blood Pressure O2 Sat by Pulse 97 99 98 Oximetry 08/13/20 08/13/20 08/13/20 23:02 23:03 23:07 Temperature Pulse Rate 86 84 87 Respiratory Rate Blood Pressure 104/55 O2 Sat by Pulse 100 100 Oximetry 08/13/20 08/13/20 08/13/20 23:12 23:17 23:22 Temperature Pulse Rate 91 H 94 H 100 H Respiratory Rate Blood Pressure O2 Sat by Pulse 100 100 100 Oximetry 08/13/20 08/13/20 08/13/20 23:27 23:30 23:32 Temperature 98 F Pulse Rate 85 97 H Respiratory 18 Rate Blood Pressure O2 Sat by Pulse 100 100 Oximetry 08/13/20 08/13/20 08/13/20 23:33 23:37 23:42 Temperature Pulse Rate 101 H 99 H 88 Respiratory Rate Blood Pressure 106/53 O2 Sat by Pulse 100 100 Oximetry 08/13/20 08/13/20 08/13/20 23:47 23:52 23:57 Temperature Pulse Rate 96 H 81 102 H Respiratory Rate Blood Pressure O2 Sat by Pulse 100 100 100 Oximetry 08/14/20 08/14/20 08/14/20 00:02 00:03 00:07 Temperature Pulse Rate 113 H 93 H 107 H Respiratory Rate Blood Pressure 108/55 O2 Sat by Pulse 100 100 Oximetry 08/14/20 08/14/20 08/14/20 00:12 00:17 00:22 Temperature Pulse Rate 90 89 95 H Respiratory Rate Blood Pressure O2 Sat by Pulse 100 100 100 Oximetry 08/14/20 08/14/20 08/14/20 00:27 00:32 00:37 Temperature Pulse Rate 100 H 98 H 113 H Respiratory Rate Blood Pressure O2 Sat by Pulse 100 99 100 Oximetry 08/14/20 08/14/20 08/14/20 00:42 00:47 00:52 Temperature Pulse Rate 139 H 122 H 101 H Respiratory Rate Blood Pressure O2 Sat by Pulse 100 100 99 Oximetry 08/14/20 08/14/20 08/14/20 00:57 01:02 01:03 Temperature Pulse Rate 97 H 98 H 98 H Respiratory Rate Blood Pressure 99/54 O2 Sat by Pulse 99 99 Oximetry 08/14/20 08/14/20 08/14/20 01:07 01:12 01:17 Temperature Pulse Rate 102 H 101 H 108 H Respiratory Rate Blood Pressure O2 Sat by Pulse 99 99 98 Oximetry 08/14/20 08/14/20 08/14/20 01:22 01:27 01:30 Temperature 98.1 F Pulse Rate 104 H 104 H Respiratory 18 Rate Blood Pressure O2 Sat by Pulse 98 99 Oximetry 08/14/20 08/14/20 08/14/20 01:32 01:37 01:42 Temperature Pulse Rate 112 H 101 H 104 H Respiratory Rate Blood Pressure 110/56 O2 Sat by Pulse 98 97 98 Oximetry 08/14/20 08/14/20 08/14/20 01:47 01:52 01:57 Temperature Pulse Rate 101 H 100 H 106 H Respiratory Rate Blood Pressure O2 Sat by Pulse 98 97 97 Oximetry 08/14/20 08/14/20 08/14/20 02:02 02:07 02:12 Temperature Pulse Rate 107 H 112 H 105 H Respiratory Rate Blood Pressure 116/53 O2 Sat by Pulse 94 97 97 Oximetry 08/14/20 08/14/20 08/14/20 02:17 02:22 02:27 Temperature Pulse Rate 91 H 89 93 H Respiratory Rate Blood Pressure O2 Sat by Pulse 98 98 98 Oximetry 08/14/20 08/14/20 08/14/20 02:32 02:37 02:42 Temperature Pulse Rate 99 H 92 H 91 H Respiratory Rate Blood Pressure 104/54 O2 Sat by Pulse 98 99 98 Oximetry 08/14/20 08/14/20 08/14/20 02:47 02:52 02:57 Temperature Pulse Rate 90 88 89 Respiratory Rate Blood Pressure O2 Sat by Pulse 98 98 98 Oximetry 08/14/20 08/14/20 08/14/20 03:02 03:07 03:12 Temperature Pulse Rate 90 90 90 Respiratory Rate Blood Pressure 105/55 O2 Sat by Pulse 98 98 98 Oximetry 08/14/20 08/14/20 08/14/20 03:17 03:22 03:27 Temperature Pulse Rate 91 H 96 H 106 H Respiratory Rate Blood Pressure O2 Sat by Pulse 98 98 98 Oximetry 08/14/20 08/14/20 08/14/20 03:32 03:34 03:37 Temperature Pulse Rate 103 H 98 H 101 H Respiratory Rate Blood Pressure 106/55 O2 Sat by Pulse 98 99 Oximetry 08/14/20 08/14/20 08/14/20 03:42 03:47 03:52 Temperature Pulse Rate 94 H 99 H 101 H Respiratory Rate Blood Pressure O2 Sat by Pulse 99 99 99 Oximetry 08/14/20 08/14/20 08/14/20 03:57 04:00 04:02 Temperature 97.9 F Pulse Rate 96 H 92 H Respiratory 16 Rate Blood Pressure O2 Sat by Pulse 99 98 Oximetry 08/14/20 08/14/20 08/14/20 04:03 04:10 04:15 Temperature Pulse Rate 98 H 99 H 101 H Respiratory Rate Blood Pressure 106/53 O2 Sat by Pulse 96 96 Oximetry 08/14/20 08/14/20 08/14/20 04:20 04:25 04:30 Temperature Pulse Rate 103 H 103 H 103 H Respiratory Rate Blood Pressure O2 Sat by Pulse 97 96 98 Oximetry 08/14/20 08/14/20 08/14/20 04:33 04:35 04:40 Temperature Pulse Rate 124 H 105 H Respiratory Rate Blood Pressure 112/77 O2 Sat by Pulse 96 98 Oximetry 08/14/20 08/14/20 08/14/20 04:45 04:50 04:55 Temperature Pulse Rate 107 H 106 H 111 H Respiratory Rate Blood Pressure O2 Sat by Pulse 98 99 98 Oximetry 08/14/20 08/14/20 08/14/20 05:00 05:02 05:05 Temperature Pulse Rate 116 H 137 H 125 H Respiratory Rate Blood Pressure 120/69 O2 Sat by Pulse 97 97 Oximetry 08/14/20 08/14/20 08/14/20 05:10 05:15 05:20 Temperature 98.1 F Pulse Rate 105 H 101 H 111 H Respiratory 20 Rate Blood Pressure O2 Sat by Pulse 97 98 98 Oximetry 08/14/20 08/14/20 08/14/20 05:25 05:30 05:32 Temperature Pulse Rate 110 H 114 H 110 H Respiratory Rate Blood Pressure 117/63 O2 Sat by Pulse 99 99 Oximetry 08/14/20 08/14/20 08/14/20 05:35 05:40 05:45 Temperature Pulse Rate 114 H 103 H 104 H Respiratory Rate Blood Pressure O2 Sat by Pulse 99 98 98 Oximetry 08/14/20 08/14/20 08/14/20 05:50 05:55 06:00 Temperature Pulse Rate 106 H 108 H 129 H Respiratory Rate Blood Pressure O2 Sat by Pulse 98 99 98 Oximetry 08/14/20 08/14/20 08/14/20 06:03 06:05 06:10 Temperature Pulse Rate 129 H 118 H 113 H Respiratory Rate Blood Pressure 110/61 O2 Sat by Pulse 100 99 Oximetry 08/14/20 08/14/20 08/14/20 06:15 06:20 06:25 Temperature Pulse Rate 101 H 111 H 111 H Respiratory Rate Blood Pressure O2 Sat by Pulse 97 96 98 Oximetry 08/14/20 08/14/20 08/14/20 06:30 06:32 06:35 Temperature Pulse Rate 105 H 108 H 114 H Respiratory Rate Blood Pressure 123/60 O2 Sat by Pulse 98 97 Oximetry 08/14/20 08/14/20 08/14/20 06:40 06:45 06:50 Temperature 98 F Pulse Rate 113 H 109 H 103 H Respiratory 18 Rate Blood Pressure O2 Sat by Pulse 98 96 91 Oximetry 08/14/20 08/14/20 08/14/20 06:55 07:00 07:03 Temperature Pulse Rate 108 H 112 H 106 H Respiratory Rate Blood Pressure 114/59 O2 Sat by Pulse 99 96 Oximetry 08/14/20 08/14/20 08/14/20 07:05 07:07 07:10 Temperature 98.1 F Pulse Rate 115 H 102 H Respiratory 20 Rate Blood Pressure O2 Sat by Pulse 95 98 Oximetry 08/14/20 08/14/20 08/14/20 07:15 07:20 07:25 Temperature Pulse Rate 122 H 110 H 104 H Respiratory Rate Blood Pressure O2 Sat by Pulse 99 94 96 Oximetry 08/14/20 08/14/20 08/14/20 07:30 07:33 07:34 Temperature Pulse Rate 90 93 H 85 Respiratory Rate Blood Pressure 100/48 O2 Sat by Pulse 96 89 Oximetry 08/14/20 08/14/20 08/14/20 07:35 07:40 07:45 Temperature Pulse Rate 89 89 85 Respiratory Rate Blood Pressure O2 Sat by Pulse 96 96 95 Oximetry 1108/14/20 08/14/20 07:46 07:50 07:52 Temperature Pulse Rate 87 88 89 Respiratory Rate Blood Pressure O2 Sat by Pulse 94 95 94 Oximetry 08/14/20 08/14/20 08/14/20 07:55 07:58 08:00 Temperature Pulse Rate 90 86 88 Respiratory Rate Blood Pressure O2 Sat by Pulse 95 94 95 Oximetry 08/14/20 08/14/20 08/14/20 08:03 08:05 08:07 Temperature Pulse Rate 82 86 91 H Respiratory Rate Blood Pressure 108/54 O2 Sat by Pulse 95 94 Oximetry 08/14/20 08/14/20 08/14/20 08:10 08:15 08:20 Temperature Pulse Rate 85 86 87 Respiratory Rate Blood Pressure O2 Sat by Pulse 93 93 93 Oximetry 08/14/20 08/14/20 08/14/20 08:25 08:30 08:32 Temperature Pulse Rate 89 84 83 Respiratory Rate Blood Pressure 107/60 O2 Sat by Pulse 94 92 91 Oximetry 08/14/20 08/14/20 08/14/20 08:35 08:38 08:40 Temperature Pulse Rate 91 H 87 82 Respiratory Rate Blood Pressure O2 Sat by Pulse 96 93 95 Oximetry 08/14/20 08/14/20 08/14/20 08:44 08:45 08:50 Temperature Pulse Rate 85 86 80 Respiratory Rate Blood Pressure O2 Sat by Pulse 94 94 96 Oximetry 08/14/20 08/14/20 08:53 08:55 Temperature Pulse Rate 82 85 Respiratory Rate Blood Pressure O2 Sat by Pulse 94 97 Oximetry - Exam Breasts: deferred Cardiovascular: Regular rate Lungs: Normal air movement FHR: category 1 Uterine Contraction Monitor Mode: Internal (IUPC placed without difficulty) Cervical Dilatation: 9 (vertex) Cervical Effacement Percentage: 80 (Pitocin @ 8mu/min) station: 0 Uterine Contraction Frequency (min): 4 Uterine Contraction Pattern: Regular Uterine Tone Measurement Phase: Resting Uterine Contraction Intensity: Moderate Extremities: edema - Labs Labs: Abnormal Labs 08/12/20 Unknown Urine WBC (Auto) 31.0 H U Epithel Cells (Auto) 92.0 H
[2020-08-14] MEDS: LACTATED RINGERS 1,000 ML IV SCH (10:10)
[2020-08-14] MEDS ORDERED: LANOLIN/ZINC/DIMETHICONE (LANSINOH) 7 GM TP PRN (12:00)
[2020-08-14] MEDS ORDERED: WITCH HAZEL/ GLYCERIN PAD TP PRN (12:00)
[2020-08-14] MEDS ORDERED: PROMETHAZINE 25 MG TAB PO PRN (12:00)
[2020-08-14] MEDS ORDERED: oxyCODONE /ACETAMINOPHEN 5-325MG TAB PO PRN (12:00)
[2020-08-14] MEDS ORDERED: diphenhydrAMINE 25 MG CAP PO PRN (12:00)
--- NOTE | 2020-08-14 12:10 | Procedure Note ---
OB Delivery Note - Delivery Date of Delivery: 08/14/20 (1128) Surgeon: JOSE BARAHONA (CNM) Estimated blood loss: 200cc - Vaginal Delivery presentation: vertex Delivery position: OA (HAL) Intrapartum events: meconium (term) Delivery induction: AROM (AROM - 08/23/2020 @ 1518) Delivery augmentation: pitocin Delivery monitor: internal FHT, internal uterine Route of delivery: Delivery placenta: spontaneous ([id number], joy) Delivery cord: 3 umbilical vessels Episiotomy: none Delivery laceration: none Anesthesia: epidural Delivery comments: Pt called out through call light stating, "the baby is coming". Upon entry to room baby was noted just at vaginal intriotus. of viable, crying female infant, placed directly to maternal abdomen. NICU notified and came to room. Cord double clamped, cut by FOB, infant handed over to NICU team for evaluation. Placenta spontaneously delivered, benita, sent to pathology. Uterus firm @ U- 1, hemostasis maintained. Perineum intact. Mother safe and stable, left in care of RN. transferred to NICU. - Infant A at 1 minute: 8 at 5 minutes: 9 Gender: Female (Weight: 2914 gms (6lbs 7ozs) 19 inches)
[2020-08-14] MEDS: IBUPROFEN 600 MG TAB PO SCH (18:20)
--- NOTE | 2020-08-14 19:21 | Post Anesthesia Evaluation ---
- Post Anesthesia Evaluation Patient Participated: Yes Airway Patent: Yes Stable Respiratory Function: Yes Nausea/Vomiting: No Temp > 96.8F: Yes Pain Manageable: Yes Adequeate Hydration: Yes Anesthesia Complications: No Block Receding Appropriately: Yes
[2020-08-14] MEDS ORDERED: MAGNESIUM HYDROXIDE (MOM) ORAL LIQD UDC PO PRN (22:00)
[2020-08-15 02:46] LABS: Hematocrit 28.1 % (30.3-42.9); Hemoglobin 9.5 gm/dl (10.1-14.3)
[2020-08-15] MEDS: IBUPROFEN 600 MG TAB PO SCH ×5 (05:35→23:44)
[2020-08-15] MEDS: PRENATAL VIT27-FE FUMARATE-FOLIC ACID VIT TAB PO SCH (11:48)
[2020-08-15] MEDS: FERROUS SULFATE 325 MG TAB PO SCH ×2 (11:49→21:48)
[2020-08-15] MEDS ORDERED: medroxyPROGESTERone ACETATE 150 MG/ML SYRINGE IM NR (12:19)
--- NOTE | 2020-08-15 12:19 | Progress Note ---
Assessment and Plan A: Day #1 Asymptomatic Anemia P: Follow routine orders FeSO4 325mg PO BID Desires depo prior to d/c D/C in the am Subjective - Subjective Date of service: 08/15/20 Principal diagnosis: Day 1 Patient reports: appetite normal, voiding normally, pain well controlled, flatus, ambulating normally : in NICU, other () Objective - Vital Signs Latest vital signs: Vital Signs Temp Pulse Resp BP BP Pulse Ox 08/15/20 07:55 97.9 F 80 18 117/72 96 08/15/20 06:25 18 08/15/20 05:35 18 08/15/20 01:08 97.8 F 92 H 20 115/70 90 08/15/20 00:00 18 08/14/20 22:24 98.1 F 82 20 117/69 97 08/14/20 16:47 20 08/14/20 16:05 98.8 F 94 H 20 116/59 08/14/20 14:50 98.0 F 78 20 132/68 97 08/14/20 12:44 83 109/59 100 08/14/20 12:43 81 115/69 08/14/20 12:31 88 127/87 08/14/20 12:16 93 H 96/71 Intake and Output 08/14/20 08/15/20 08/15/20 22:59 06:59 14:59 Intake Total 320 360 240 Output Total 500 400 Balance -180 -40 240 Intake: Oral 320 240 Intake, Free Water 360 Output: Urine 500 400 Indwelling Catheter 300 Void 200 400 Other: Total, Intake Amount 320 240 Total, Output Amount 200 400 # Voids Indwelling Catheter 1 Void 1 1 - Exam Breasts: Present: normal Cardiovascular: Present: Regular rate, Normal S1, Normal S2 Lungs: Present: Clear to auscultation, Normal air movement Abdomen: Present: normal appearance, soft, normal bowel sounds Uterus: Present: normal, firm, fundal height below umbilicus Extremities: Present: normal - Labs Labs: Abnormal lab results 08/15/20 Range/Units 01:59 Hgb 9.5 L (10.1-14.3) gm/dl Hct 28.1 L D (30.3-42.9) %
--- NOTE | 2020-08-15 12:23 | Discharge Summary ---
Providers - Providers Date of Admission: 08/12/20 16:40 Date of discharge: 08/16/20 Attending physician: LINDA PAGE Primary care physician: LINDA PAGE Hospitalization Reason for admission: labor Delivery: Episiotomy: none Laceration: none Other procedures: none complications: none Discharge diagnosis: delivery baby: female Condition at discharge: Good Disposition: [id number] TO HOME OR SELFCARE Plan - Provider Discharge Summary Activity: routine, no sex for 6 weeks, no heavy lifting 4 weeks, no strenuous exercise Diet: routine Instructions: routine Additional instructions: [] Smoking cessation referral if applicable(refer to patient education folder for contact #) [] Refer to [facility] Booklet Call your doctor immediately for: * Fever > 100.5 * Heavy vaginal bleeding ( >1 pad per hour) * Severe persistent headache * Shortness of breath * Reddened, hot, painful area to leg or breast * Drainage or odor from incision. * Keep incision clean and dry at all times and follow doctor's instructions regarding bathing/showering - Follow up plan Follow up: LINDA PAGE MD [Primary Care Provider] - 6 Weeks
[2020-08-16] MEDS: IBUPROFEN 600 MG TAB PO SCH ×2 (05:37→12:31)
[2020-08-16] MEDS ORDERED: DIPHtheria,PERTUSSIS(ACELL),TETANUS VACCINE/PF 0.5 ML VIAL IM ONE (06:00)
[2020-08-16] MEDS: FERROUS SULFATE 325 MG TAB PO SCH (10:20)
[2020-08-16] MEDS: PRENATAL VIT27-FE FUMARATE-FOLIC ACID VIT TAB PO SCH (10:20)
[2020-08-16] MEDS ORDERED: FLU VACC QUAD 2020-2021 (6 months +)/PF 60 0.5 ML SYRINGE IM ONE (12:00)
[2020-08-16] MEDS ORDERED: medroxyPROGESTERone ACETATE 150 MG/ML SYRINGE IM ONE (12:38)
[2020-08-16 12:47] VITALS: BP 148/83
== END 2020-08-16 14:36 | disposition home or self-care (01) | DRG 775 ==
LOC: TRG 09:04 → APU 09:05 → TRG 16:31 → LD 16:40 → OB 08-14 14:53
PROVIDERS: ADMIT Obstetrics & Gynecology; ATTEND Obstetrics & Gynecology
PROC: 10907ZC Drainage of Amniotic Fluid, Therapeutic from Products of Conception, Via Natural or Artificial Opening (ICD-10-PCS; 2020-08-13)
PROC: 3E0R3BZ Introduction of Anesthetic Agent into Spinal Canal, Percutaneous Approach (ICD-10-PCS; 2020-08-13)
PROC: 00HU33Z Insertion of Infusion Device into Spinal Canal, Percutaneous Approach (ICD-10-PCS; 2020-08-13)
PROC: 10E0XZZ Delivery of Products of Conception, External Approach (ICD-10-PCS; principal; 2020-08-14)
PROC: 10H07YZ Insertion of Other Device into Products of Conception, Via Natural or Artificial Opening (ICD-10-PCS; 2020-08-14)
PROC: 3E0234Z Introduction of Serum, Toxoid and Vaccine into Muscle, Percutaneous Approach (ICD-10-PCS; 2020-08-16)
DX: O60.14X0 Preterm labor third trimester with preterm delivery third trimester, not applicable or unspecified (principal); Z37.0 Single live birth; O42.913 Preterm premature rupture of membranes, unspecified as to length of time between rupture and onset of labor, third trimester; O09.523 Supervision of elderly multigravida, third trimester; O77.0 Labor and delivery complicated by meconium in amniotic fluid; O99.214 Obesity complicating childbirth; E66.9 Obesity, unspecified; O99.52 Diseases of the respiratory system complicating childbirth; J45.909 Unspecified asthma, uncomplicated; O90.81 Anemia of the puerperium; D64.9 Anemia, unspecified; Z23 Encounter for immunization; Z20.828 Contact with and (suspected) exposure to other viral communicable diseases; Z3A.36 36 weeks gestation of pregnancy
CPT/HCPCS: 36415; 59025; 76815; 76816; 76819; 81001; 83036; 85014; 85018; 85027; 86592; 86706; 86762; 86803; 86850; 86900; 86901; 87086; 87806; 90686; 90715; 96360; 96361; 96365; 96366; 96374; G0378; J0290; J0702; J1050; J2405; J2590; J3010; J3105; J7120; U0003